=== PATIENT | female | born 1945 | race Caucasian/White ===

== ENCOUNTER 2020-05-09 14:02 | Inpatient (IN) ==
[2020-05-10] MEDS: Ascorbic Acid 500 MG TABLET PO SCH (17:25)
[2020-05-10] MEDS: Acetaminophen 325 MG TABLET PO PRN (17:25)
[2020-05-10] MEDS: Gabapentin 300 MG CAPSULE PO SCH (19:45)
[2020-05-11] MEDS: *HR* Enoxaparin 40 MG/0.4 ML SYRINGE SQ SCH (05:53)
[2020-05-11] MEDS: Acetaminophen 325 MG TABLET PO PRN (08:34)
[2020-05-11] MEDS: Gabapentin 300 MG CAPSULE PO SCH ×2 (08:42→20:28)
[2020-05-11] MEDS: Ascorbic Acid 500 MG TABLET PO SCH ×2 (08:42→16:19)
[2020-05-11] MEDS: Aspirin Enteric Coated 81 MG Tablet PO SCH (08:42)
[2020-05-11] MEDS: Multivit/Ca/Min/Fe/FA 1 TAB TABLET PO SCH (08:42)
[2020-05-11] MEDS: *HR* OxyCODONE Immed Rel 5 MG TABLET PO PRN (20:28)
[2020-05-12] MEDS: *HR* Enoxaparin 40 MG/0.4 ML SYRINGE SQ SCH (04:47)
[2020-05-12] MEDS: *HR* OxyCODONE Immed Rel 5 MG TABLET PO PRN ×3 (04:47→20:24)
[2020-05-12 05:06] LABS: Hematocrit 30.2 % (35.3-44.9); Hemoglobin 9.8 g/dL (11.5-15.4); Mean Corpuscular HGB Conc 32.5 g/dL (31.6-35.5); Mean Corpuscular Hemoglobin 31.6 pg (28.0-33.3); Mean Corpuscular Volume 97.4 fL (83.0-100.0); Mean Platelet Volume 11.5 fL (9.4-12.4); Platelet Count 201 K/mcL (140-400)
[2020-05-12 05:23] LABS: Alanine Aminotransferase 42 Units/L (7-52); Albumin 2.8 g/dL (3.5-5.7); Albumin/Globulin Ratio 1.1 (1.1-2.2); Alkaline Phosphatase 68 Units/L (34-104); Aspartate Amino Transferase 59 Units/L (13-39); BUN/Creatinine Ratio 23 (6-26); Bilirubin,Total 0.4 mg/dL (0.3-1.0); Blood Urea Nitrogen 13 mg/dL (8-23); Calcium 8.4 mg/dL (8.6-10.3); Carbon Dioxide 30 mEq/L (23-29); Chloride 104 mEq/L (98-107); Globulin 2.5 g/dL (2.4-3.5); Glucose 117 mg/dL (70-105); Osmolality,Calculated 289 (280-300); Potassium 3.7 mEq/L (3.5-5.1); Sodium 139 mEq/L (136-145); Total Protein 5.3 g/dL (6.4-8.9); eGFR For African Americans > 60 (> 60); eGFR For Non-African Americans > 60 (> 60)
[2020-05-12] MEDS: Multivit/Ca/Min/Fe/FA 1 TAB TABLET PO SCH (08:17)
[2020-05-12] MEDS: Gabapentin 300 MG CAPSULE PO SCH ×2 (08:17→20:24)
[2020-05-12] MEDS: Ascorbic Acid 500 MG TABLET PO SCH ×2 (08:17→16:53)
[2020-05-12] MEDS: Aspirin Enteric Coated 81 MG Tablet PO SCH (08:17)
[2020-05-13] MEDS: *HR* OxyCODONE Immed Rel 5 MG TABLET PO PRN ×3 (05:25→21:38)
[2020-05-13] MEDS: *HR* Enoxaparin 40 MG/0.4 ML SYRINGE SQ SCH (05:25)
[2020-05-13] MEDS: Gabapentin 300 MG CAPSULE PO SCH ×2 (09:50→20:19)
[2020-05-13] MEDS: Aspirin Enteric Coated 81 MG Tablet PO SCH (09:50)
[2020-05-13] MEDS: Multivit/Ca/Min/Fe/FA 1 TAB TABLET PO SCH (09:50)
[2020-05-13] MEDS: Ascorbic Acid 500 MG TABLET PO SCH ×2 (09:50→16:24)
[2020-05-13] MEDS: Acetaminophen 325 MG TABLET PO PRN (20:19)
[2020-05-14] MEDS: *HR* OxyCODONE Immed Rel 5 MG TABLET PO PRN ×2 (05:13→14:29)
[2020-05-14] MEDS: *HR* Enoxaparin 40 MG/0.4 ML SYRINGE SQ SCH (05:14)
[2020-05-14 07:15] VITALS: BP 111/65
[2020-05-14] MEDS: Multivit/Ca/Min/Fe/FA 1 TAB TABLET PO SCH (08:27)
[2020-05-14] MEDS: Aspirin Enteric Coated 81 MG Tablet PO SCH (08:27)
[2020-05-14] MEDS: Ascorbic Acid 500 MG TABLET PO SCH (08:27)
[2020-05-14] MEDS: Gabapentin 300 MG CAPSULE PO SCH (08:27)
[2020-05-14 12:36] LABS: Basophils # 0.1 K/mcL (0.0-0.2); Basophils % 0.9 %; Eosinophils # 0.7 K/mcL (0.0-0.6); Hematocrit 31.4 % (35.3-44.9); Hemoglobin 10.1 g/dL (11.5-15.4); Immature Granulocytes % 0.5 % (0-4); Lymphocytes # 0.9 K/mcL (0.6-4.6); Lymphocytes % 10.6 %; Mean Corpuscular HGB Conc 32.2 g/dL (31.6-35.5); Mean Corpuscular Hemoglobin 31.3 pg (28.0-33.3); Mean Corpuscular Volume 97.2 fL (83.0-100.0); Mean Platelet Volume 11.4 fL (9.4-12.4); Monocytes # 0.8 K/mcL (0.0-1.3); Platelet Count 249 K/mcL (140-400); Red Blood Count 3.23 M/mcL (3.82-4.97); Red Cell Distribution Width 14.6 % (11.5-14.5); White Blood Count 8.5 K/mcL (4.3-11.1)
[2020-05-14 12:49] LABS: BUN/Creatinine Ratio 22 (6-26); Blood Urea Nitrogen 14 mg/dL (8-23); Calcium 8.6 mg/dL (8.6-10.3); Carbon Dioxide 31 mEq/L (23-29); Chloride 100 mEq/L (98-107); Glucose 138 mg/dL (70-105); Osmolality,Calculated 287 (280-300); Potassium 3.2 mEq/L (3.5-5.1); Sodium 137 mEq/L (136-145); eGFR For African Americans > 60 (> 60); eGFR For Non-African Americans > 60 (> 60)
== END 2020-05-14 15:43 | disposition home health service (06) | DRG 561 ==
LOC: INPGRE 05-10 14:54
PROVIDERS: ADMIT Family Medicine; ATTEND Family Medicine